=== PATIENT | male | born 1975 | race Caucasian/White ===

== ENCOUNTER 2018-05-23 20:48 | Emergency (ER) | payer OTHER ==
[2018-05-23] MEDS ORDERED: NS 1,000 ML IV ONE (20:54)
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
[2018-05-23 21:02] LABS: PLATELET COUNT 235 10^3/uL (150-400)
[2018-05-23 21:15] LABS: INR 0.98 (0.83-1.16); PROTIME(PATIENT) 13.2 SEC (12.0-15.0)
[2018-05-23 22:22] VITALS: BP 152/90
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
== END 2018-05-23 22:22 ==
LOC: EDUNIT#
DX: F10.920 Alcohol use, unspecified with intoxication, uncomplicated (principal); E86.9 Volume depletion, unspecified; V49.49XA Driver injured in collision with other motor vehicles in traffic accident, initial encounter; Y92.410 Unspecified street and highway as the place of occurrence of the external cause
CPT/HCPCS: 80305; 82435-PO; 82565-PO; 82947-PO; 84132-PO; 84295-PO; 84520-PO; 85014-ER; G0480